=== PATIENT | male | born 1970 | race African-American/Black ===

== ENCOUNTER 2022-12-24 11:53 | Emergency (ER) | payer BC, OTHER ==
[2022-12-24 12:29] VITALS: BP 161/94; PULSE 73; RESP 20; TEMP 97.6; BMI 32.0
== END 2022-12-24 16:39 | disposition home or self-care (01) ==
LOC: JER 11:53
DX: R09.89 Other specified symptoms and signs involving the circulatory and respiratory systems (principal)
CPT/HCPCS: 70490-TC; 99284-25